=== PATIENT | male | born 1980 | race Caucasian/White ===

== ENCOUNTER → 2018-09-17 | Outpatient (CLI) | payer OTHER | LOC: M SLEEP HO 10:45 | DX: G47.30 Sleep apnea, unspecified (principal) | CPT/HCPCS: G0399 ==

== ENCOUNTER → 2018-09-18 | Outpatient (CLI) | payer OTHER ==
[2018-09-18 18:02] LABS: BASO # 0.1 10^3/uL (0.0-0.2); BASO % 0.9 % (0.0-1.0); EOS # 0.1 10^3/uL (0.0-0.50); EOS % 1.4 % (0.0-3.0); HEMATOCRIT 50.8 % (42.0-52.0); HEMOGLOBIN 16.6 g/dl (13.5-17.5); IMMATURE GRANULOCYTE % 0.6 % (0-3.0); LYMPH # 2.4 10^3/uL (1.5-4.5); LYMPH % 25.3 % (24.0-44.0); MEAN CORPUSCULAR HEMOGLOBIN 28.6 pg (27.0-33.0); MEAN CORPUSCULAR HGB CONC 32.7 g/dl (32.0-36.5); MEAN CORPUSCULAR VOLUME 87.6 fl (80.0-96.0); MONO # 0.7 10^3/uL (0.0-0.8); NEUTROPHILS # 6.1 10^3/uL (1.8-7.7); NEUTROPHILS % 64.8 % (36.0-66.0); PLATELET COUNT, AUTOMATED 306 10^3/uL (150-450); RED CELL DISTRIBUTION WIDTH 13.2 % (11.5-14.5); WHITE BLOOD COUNT 9.3 10^3/uL (4.0-10.0)
[2018-09-18 18:22] LABS: ESTIMATED AVERAGE GLUCOSE 111 MG/DL (60-110); HEMOGLOBIN A1c 5.5 %
[2018-09-18 18:23] LABS: ALBUMIN 3.7 GM/DL (3.2-5.2); ALBUMIN/GLOBULIN RATIO 1.06 (1.00-1.93); ALKALINE PHOSPHATASE 67 U/L (45-117); ALT/SGPT 19 U/L (12-78); ANION GAP 9 MEQ/L (8-16); AST/SGOT 23 U/L (7-37); BILIRUBIN,TOTAL 0.7 MG/DL (0.2-1.0); BLOOD UREA NITROGEN 21 MG/DL (7-18); CARBON DIOXIDE LEVEL 27 MEQ/L (21-32); CHLORIDE LEVEL 101 MEQ/L (98-107); CHOLESTEROL LEVEL 175 MG/DL (<200); CREATININE FOR GFR 1.21 MG/DL (0.70-1.30); FREE T4 0.99 NG/DL (0.76-1.46); GLOMERULAR FILTRATION RATE > 60.0 (>60); GLUCOSE, FASTING 76 MG/DL (70-100); HDL CHOLESTEROL 35 MG/DL (>40); LDL CHOLESTEROL 93 MG/DL (<100); NON-HDL-C 140 MG/DL; POTASSIUM SERUM 4.6 MEQ/L (3.5-5.1); SODIUM LEVEL 137 MEQ/L (136-145); TOTAL PROTEIN 7.2 GM/DL (6.4-8.2); TRIGLYCERIDES LEVEL 234 MG/DL (<150)
== END ==
LOC: M WUC 10:37
DX: I10 Essential (primary) hypertension (principal); E66.01 Morbid (severe) obesity due to excess calories
CPT/HCPCS: 84443

== ENCOUNTER → 2018-12-13 | Outpatient (CLI) | payer OTHER ==
[~2018-12-13] MED LIST: CLONI1TA PO; HYDR25TAB PO
[2018-12-13 19:46] LABS: ALBUMIN 3.8 GM/DL (3.2-5.2); BILIRUBIN,TOTAL 0.8 MG/DL (0.2-1.0); CALCIUM LEVEL 8.9 MG/DL (8.5-10.1); CREATININE FOR GFR 1.47 MG/DL (0.70-1.30); GLOMERULAR FILTRATION RATE 57.4 (>60); POTASSIUM SERUM 4.8 MEQ/L (3.5-5.1)
== END ==
LOC: M WUC 15:34
PROVIDERS: ATTEND Physician Assistant Medical
DX: I10 Essential (primary) hypertension (principal)

== ENCOUNTER 2023-06-18 12:48 | Inpatient (IN) | payer OTHER ==
[~2023-06-18] VITALS: Ht 180.3 cm; Wt 184.0 kg
[~2023-06-18 12:48] MED LIST changes: +HYDR-3490 PO; -HYDR25TAB PO
[2023-06-18] MEDS ORDERED: METOPROLOL 5 MG/5 ML VIAL IV PRN (13:15)
[2023-06-18] MEDS ORDERED: METOPROLOL TART 50 MG TAB PO ONE (13:15)
[2023-06-18 13:37] LABS: CK-MB VALUE MASS 5.1 NG/ML (<3.6)
[2023-06-18 13:38] LABS: LIPASE 33 U/L (12-53)
[2023-06-18 13:40] LABS: ALBUMIN 3.8 G/DL (3.2-5.2); ALKALINE PHOSPHATASE 94 U/L (46-116); ALT/SGPT 18 U/L (7.0-40); AST/SGOT 28 U/L (<34); BILIRUBIN,DIRECT 0.2 MG/DL (<0.4); BILIRUBIN,TOTAL 0.7 MG/DL (0.3-1.2); BLOOD UREA NITROGEN 15 MG/DL (9-23); CALCIUM LEVEL 9.7 MG/DL (8.5-10.1); CARBON DIOXIDE LEVEL 25 MMOL/L (20-31); CHLORIDE LEVEL 106 MMOL/L (98-107); CPK CREATINE PHOSPHOKINASE 348 U/L (46-171); CREATININE FOR GFR 1.05 MG/DL (0.70-1.30); GLOMERULAR FILTRATION RATE > 60.0 (>60); GLUCOSE, FASTING 127 MG/DL (60-100); MB/CK RELATIVE INDEX 1.46 (< OR =4); POTASSIUM SERUM 3.9 MMOL/L (3.5-5.1); SODIUM LEVEL 140 MMOL/L (136-145); TOTAL PROTEIN 7.4 G/DL (5.7-8.2)
[2023-06-18 13:42] LABS: THYROID STIMULATING HORMONE 2.853 uIU/ML (0.55-4.78)
[2023-06-18 13:48] LABS: PROTHROMBIN TIME 12.9 SECONDS (12.5-14.5)
[2023-06-18] MEDS ORDERED: hydrALAZINE 20MG/ML 1ML VIAL IV STA (14:05)
[2023-06-18 15:09] LABS: CK-MB VALUE MASS 5.9 NG/ML (<3.6)
[2023-06-18 15:11] LABS: MB/CK RELATIVE INDEX 1.82 (< OR =4)
[2023-06-18] MEDS ORDERED: CARVedilol 12.5 MG TAB PO ONE (15:40)
[2023-06-18 15:44] LABS: BASO # 0.1 10^3/uL (0.0-0.2); BASO % 0.9 % (0.0-1.0); EOS # 0.1 10^3/uL (0.0-0.5); EOS % 0.7 % (0.0-3.0); HEMOGLOBIN 16.2 g/dl (13.5-17.5); LYMPH # 2.4 10^3/uL (1.5-5.0); MEAN CORPUSCULAR HEMOGLOBIN 29.1 pg (27.0-33.0); MEAN CORPUSCULAR HGB CONC 33.1 g/dl (32.0-36.5); MEAN CORPUSCULAR VOLUME 88.1 fl (80.0-96.0); MONO # 0.9 10^3/uL (0.0-0.8); NEUTROPHILS # 9.4 10^3/uL (1.5-8.5); NEUTROPHILS % 72.4 % (36.0-66.0); PLATELET COUNT, AUTOMATED 291 10^3/uL (150-450); RED BLOOD COUNT 5.56 10^6/uL (4.30-6.10)
[2023-06-18] MEDS ORDERED: MED REC IN PROGRESS XX SCH (17:45)
[2023-06-18] MEDS ORDERED: MOM 30ML SUSPENSION UDC PO PRN (18:25)
[2023-06-18] MEDS ORDERED: ACETAMINOPHEN TAB 650MG DOSE (2X325MG) PO PRN (18:25)
[2023-06-18] MEDS ORDERED: HOME MED LIST COMPLETE! XX SCH (18:45)
[2023-06-18] MEDS ORDERED: NS 1,000 ML IV STA (19:31)
[2023-06-18 19:51] LABS: HEMOGLOBIN A1c 5.9 % (4.0-6.0)
[2023-06-18 19:57] LABS: CHOLESTEROL RISK RATIO 4.48 (<5); HDL CHOLESTEROL 44.1 MG/DL (>40); LDL CHOLESTEROL 115.5 MG/DL (<100); NON-HDL-C 153.9 MG/DL
[2023-06-18] MEDS: DOCUSATE SODIUM 100MG CAPSULE PO SCH (22:27)
[2023-06-18 22:40] VITALS: BP 143/74; TEMP 97; O2SAT 96
[2023-06-19 03:50] VITALS: BP 137/73; TEMP 98; O2SAT 98
[2023-06-19 05:20] LABS: HEMATOCRIT 43.8 % (42.0-52.0); HEMOGLOBIN 14.6 g/dl (13.5-17.5); MEAN CORPUSCULAR HEMOGLOBIN 29.7 pg (27.0-33.0); MEAN CORPUSCULAR HGB CONC 33.3 g/dl (32.0-36.5); MEAN CORPUSCULAR VOLUME 89.2 fl (80.0-96.0); PLATELET COUNT, AUTOMATED 248 10^3/uL (150-450); RED BLOOD COUNT 4.91 10^6/uL (4.30-6.10); WHITE BLOOD COUNT 14.1 10^3/uL (4.0-10.0)
[2023-06-19 05:44] LABS: CALCIUM LEVEL 8.8 MG/DL (8.5-10.1); CREATININE FOR GFR 1.41 MG/DL (0.70-1.30); GLOMERULAR FILTRATION RATE 58.7 (>60)
[2023-06-19] MEDS ORDERED: LR 1,000 ML IV ONE (07:10)
[2023-06-19 08:35] VITALS: BP 171/81; TEMP 97.4; O2SAT 94
[2023-06-19] MEDS: DOCUSATE SODIUM 100MG CAPSULE PO SCH ×2 (10:14→20:52)
[2023-06-19] MEDS: ASPIRIN 325 MG TAB PO SCH (10:14)
[2023-06-19] MEDS: ENOXAPARIN 40MG/0.4ML SYRINGE (J1650 PER 10MG) SC SCH (10:15)
[2023-06-19] MEDS: CARVedilol 12.5 MG TAB PO SCH ×2 (10:15→20:55)
[2023-06-19 11:31] VITALS: BP 144/74; TEMP 97.1; O2SAT 95
[2023-06-19 15:16] LABS: CALCIUM LEVEL 9.1 MG/DL (8.5-10.1); CREATININE FOR GFR 1.47 MG/DL (0.70-1.30); GLOMERULAR FILTRATION RATE 55.9 (>60)
[2023-06-19 15:42] VITALS: BP 137/80; TEMP 97.2; O2SAT 94
[2023-06-19] MEDS: LR 1,000 ML IV SCH (18:26)
[2023-06-19 20:00] VITALS: BP 198/100; TEMP 96.7; O2SAT 95
[2023-06-19 22:12] VITALS: BP 180/98
[2023-06-19] MEDS ORDERED: amLODIPine 5 MG TAB PO ONE (22:30)
[2023-06-20] VITALS: BP 210/102; TEMP 96.7; O2SAT 93
[2023-06-20 00:33] VITALS: BP 174/110
[2023-06-20] MEDS: LR 1,000 ML IV SCH (01:07)
[2023-06-20 02:26] VITALS: BP 176/106
[2023-06-20] MEDS ORDERED: amLODIPine 5 MG TAB PO ONE (02:30)
[2023-06-20 04:30] VITALS: BP 157/99; TEMP 97.3; O2SAT 97
[2023-06-20 05:14] LABS: HEMOGLOBIN 14.4 g/dl (13.5-17.5); MEAN CORPUSCULAR HEMOGLOBIN 29.6 pg (27.0-33.0); MEAN CORPUSCULAR HGB CONC 32.7 g/dl (32.0-36.5); MEAN CORPUSCULAR VOLUME 90.5 fl (80.0-96.0); PLATELET COUNT, AUTOMATED 225 10^3/uL (150-450); RED BLOOD COUNT 4.86 10^6/uL (4.30-6.10); WHITE BLOOD COUNT 11.6 10^3/uL (4.0-10.0)
[2023-06-20 05:37] LABS: BLOOD UREA NITROGEN 22 MG/DL (9-23); CALCIUM LEVEL 8.6 MG/DL (8.5-10.1); CARBON DIOXIDE LEVEL 24 MMOL/L (20-31); CHLORIDE LEVEL 108 MMOL/L (98-107); CREATININE FOR GFR 1.22 MG/DL (0.70-1.30); GLOMERULAR FILTRATION RATE > 60.0 (>60); GLUCOSE, FASTING 94 MG/DL (60-100); MAGNESIUM LEVEL 1.8 MG/DL (1.8-2.4); POTASSIUM SERUM 4.1 MMOL/L (3.5-5.1); SODIUM LEVEL 142 MMOL/L (136-145)
[2023-06-20 07:55] VITALS: BP 170/96; TEMP 97; O2SAT 96
[2023-06-20] MEDS ORDERED: CHLORTHALIDONE 25 MG TAB PO SCH (09:00)
[2023-06-20] MEDS: ASPIRIN 325 MG TAB PO SCH (09:21)
[2023-06-20] MEDS: DOCUSATE SODIUM 100MG CAPSULE PO SCH (09:21)
[2023-06-20] MEDS: ENOXAPARIN 40MG/0.4ML SYRINGE (J1650 PER 10MG) SC SCH (09:21)
[2023-06-20] MEDS: CARVedilol 12.5 MG TAB PO SCH (09:22)
[2023-06-20] MEDS ORDERED: ASPI-1 PO (11:11)
[2023-06-20] MEDS ORDERED: CHLO25TA PO (11:11)
[2023-06-20] MEDS ORDERED: CARV12.5 PO (11:11)
[2023-06-20] MEDS ORDERED: CARV25TA PO (11:12)
== END 2023-06-20 12:28 | disposition home or self-care (01) | DRG 281 ==
LOC: M ED 12:48 → M ED INP 18:25 → M PCU 22:40
PROVIDERS: ADMIT Student in an Organized Health Care Education/Training Program; ATTEND Student in an Organized Health Care Education/Training Program
PROC: B246ZZZ Ultrasonography of Right and Left Heart (ICD-10-PCS; principal; 2023-06-18)
DX: I48.0 Paroxysmal atrial fibrillation (principal); I21.A1 Myocardial infarction type 2; I16.1 Hypertensive emergency; I50.32 Chronic diastolic (congestive) heart failure; N17.9 Acute kidney failure, unspecified; Z68.43 Body mass index [BMI] 50.0-59.9, adult; E66.01 Morbid (severe) obesity due to excess calories; G47.33 Obstructive sleep apnea (adult) (pediatric); I11.0 Hypertensive heart disease with heart failure; I95.89 Other hypotension

== ENCOUNTER → 2023-07-09 | Outpatient (CLI) | payer OTHER ==
[~2023-07-09] MED LIST changes: +ASPI-1 PO; +CARV12.5 PO; +CARV25TA PO; +CHLO25TA PO
[2023-07-09 17:29] LABS: BASO # 0.1 10^3/uL (0.0-0.2); EOS # 0.2 10^3/uL (0.0-0.5); EOS % 1.5 % (0.0-3.0); HEMATOCRIT 47.5 % (42.0-52.0); HEMOGLOBIN 15.8 g/dl (13.5-17.5); LYMPH # 2.7 10^3/uL (1.5-5.0); LYMPH % 27.7 % (24.0-44.0); MEAN CORPUSCULAR HEMOGLOBIN 29.7 pg (27.0-33.0); MEAN CORPUSCULAR HGB CONC 33.3 g/dl (32.0-36.5); MEAN CORPUSCULAR VOLUME 89.3 fl (80.0-96.0); MONO # 0.8 10^3/uL (0.0-0.8); MONO % 8.4 % (2.0-8.0); NEUTROPHILS # 5.9 10^3/uL (1.5-8.5); NEUTROPHILS % 60.6 % (36.0-66.0); PLATELET COUNT, AUTOMATED 269 10^3/uL (150-450); RED BLOOD COUNT 5.32 10^6/uL (4.30-6.10); WHITE BLOOD COUNT 9.8 10^3/uL (4.0-10.0)
[2023-07-09 17:49] LABS: ALBUMIN 3.6 G/DL (3.2-5.2); ALKALINE PHOSPHATASE 77 U/L (46-116); ALT/SGPT 21 U/L (7.0-40); AST/SGOT 23 U/L (<34); BILIRUBIN,TOTAL 0.6 MG/DL (0.3-1.2); BLOOD UREA NITROGEN 23 MG/DL (9-23); CALCIUM LEVEL 9.3 MG/DL (8.5-10.1); CARBON DIOXIDE LEVEL 31 MMOL/L (20-31); CHLORIDE LEVEL 103 MMOL/L (98-107); CK-MB VALUE MASS 2.2 NG/ML (<3.6); CREATININE FOR GFR 1.27 MG/DL (0.70-1.30); GLOMERULAR FILTRATION RATE > 60.0 (>60); GLUCOSE, FASTING 73 MG/DL (60-100); POTASSIUM SERUM 4.6 MMOL/L (3.5-5.1); SODIUM LEVEL 140 MMOL/L (136-145); TOTAL PROTEIN 7.2 G/DL (5.7-8.2)
[2023-07-09 18:05] LABS: CPK CREATINE PHOSPHOKINASE 301 U/L (46-171); MB/CK RELATIVE INDEX 0.73 (< OR =4)
== END ==
LOC: M PLALAB 15:10
PROVIDERS: ATTEND Physician Assistant Medical
DX: I25.9 Chronic ischemic heart disease, unspecified (principal); I48.0 Paroxysmal atrial fibrillation; I16.0 Hypertensive urgency; N17.9 Acute kidney failure, unspecified; I50.31 Acute diastolic (congestive) heart failure

== ENCOUNTER 2024-04-28 10:15 | Emergency (ER) | payer OTHER ==
[~2024-04-28] VITALS: Ht 177.8 cm; Wt 182.5 kg
[2024-04-28 11:08] LABS: BASO # 0.1 10^3/uL (0.0-0.2); BASO % 0.4 % (0.0-1.0); EOS % 0.1 % (0.0-3.0); HEMATOCRIT 46.7 % (42.0-52.0); HEMOGLOBIN 16.2 g/dl (13.5-17.5); LYMPH # 1.8 10^3/uL (1.5-5.0); LYMPH % 11.1 % (24.0-44.0); MEAN CORPUSCULAR HGB CONC 34.7 g/dl (32.0-36.5); MEAN CORPUSCULAR VOLUME 89.5 fl (80.0-96.0); MONO # 1.3 10^3/uL (0.0-0.8); MONO % 8.3 % (2.0-8.0); NEUTROPHILS # 12.8 10^3/uL (1.5-8.5); NEUTROPHILS % 79.4 % (36.0-66.0); PLATELET COUNT, AUTOMATED 234 10^3/uL (150-450); RED BLOOD COUNT 5.22 10^6/uL (4.30-6.10); WHITE BLOOD COUNT 16.1 10^3/uL (4.0-10.0)
[2024-04-28 11:21] LABS: INR 1.08; PARTIAL THROMBOPLASTIN TIME 28.4 SECONDS (24.8-34.2); PROTHROMBIN TIME 13.7 SECONDS (12.5-14.5)
[2024-04-28 11:27] LABS: LIPASE 25 U/L (12-53)
[2024-04-28 11:29] LABS: ALBUMIN 3.8 G/DL (3.2-5.2); ALKALINE PHOSPHATASE 86 U/L (46-116); ALT/SGPT 18 U/L (7.0-40); AST/SGOT 45 U/L (<34); BILIRUBIN,DIRECT 0.6 MG/DL (<0.4); BILIRUBIN,TOTAL 2.2 MG/DL (0.3-1.2); BLOOD UREA NITROGEN 11 MG/DL (9-23); CALCIUM LEVEL 9.5 MG/DL (8.5-10.1); CARBON DIOXIDE LEVEL 26 MMOL/L (20-31); CHLORIDE LEVEL 103 MMOL/L (98-107); CK-MB VALUE MASS 2.3 NG/ML (<3.6); CPK CREATINE PHOSPHOKINASE 262 U/L (46-171); CREATININE FOR GFR 0.91 MG/DL (0.70-1.30); GLOMERULAR FILTRATION RATE > 60.0 (>60); GLUCOSE, FASTING 141 MG/DL (60-100); MB/CK RELATIVE INDEX 0.87 (< OR =4); POTASSIUM SERUM 3.7 MMOL/L (3.5-5.1); SODIUM LEVEL 136 MMOL/L (136-145); TOTAL PROTEIN 7.4 G/DL (5.7-8.2)
[2024-04-28 11:33] LABS: FREE T4 1.08 NG/DL (0.89-1.76); THYROID STIMULATING HORMONE 2.366 uIU/ML (0.55-4.78)
[2024-04-28] MEDS: LABETALOL 100MG/20ML VIAL IV STA (12:37)
[2024-04-28] MEDS ORDERED: ISOVUE-370 76% 100ML VIAL As Ordered ONE (12:41)
[2024-04-28 13:00] LABS: CK-MB VALUE MASS 2.2 NG/ML (<3.6); MB/CK RELATIVE INDEX 0.91 (< OR =4)
[2024-04-28] MEDS: CARVedilol 12.5 MG TAB PO ONE (13:13)
[2024-04-28] MEDS ORDERED: HOME MED LIST COMPLETE! XX SCH (14:45)
[2024-04-28] MEDS ORDERED: LISI20TA33 PO (17:55)
[2024-04-28] MEDS ORDERED: NORV5TAB PO (17:55)
[2024-04-28] MEDS ORDERED: [UNRECOGNIZED DRUG - CODE] PO (17:55)
[2024-04-28] MEDS ORDERED: CORE25TA PO (17:55)
[2024-04-28 18:30] VITALS: O2SAT 94
[2024-04-28 18:33] VITALS: BP 153/72
[2024-04-28] MEDS: lisinopriL 40MG TAB PO ONE (18:33)
[2024-04-28] MEDS: amLODIPine 5 MG TAB PO ONE (18:33)
[2024-04-28 18:36] VITALS: BP 138/82; TEMP 98
== END 2024-04-28 18:43 | disposition home or self-care (01) ==
LOC: M ED 10:15
DX: I16.0 Hypertensive urgency (principal); R31.9 Hematuria, unspecified; I45.81 Long QT syndrome; I48.91 Unspecified atrial fibrillation; I10 Essential (primary) hypertension; G47.33 Obstructive sleep apnea (adult) (pediatric); Z79.899 Other long term (current) drug therapy
CPT/HCPCS: 71046; 74177; 80048; 80076; 81001; 82550; 82553; 83690; 83880; 84439; 84443; 84484; 85025; 85610; 85730; 87086; 93005; 93041; 94760; 96374; 99285; J1920; Q9967

== ENCOUNTER 2025-10-01 12:45 | Emergency (ER) | payer OTHER ==
[~2025-10-01] VITALS: Ht 175.3 cm; Wt 192.2 kg
[~2025-10-01 12:45] MED LIST changes: +CORE25TA PO; +LISI20TA33 PO; +NORV5TAB PO; +[UNRECOGNIZED DRUG - CODE] PO
[2025-10-01 12:55] VITALS: TEMP 98.2
[2025-10-01 13:08] LABS: BASO # 0.1 10^3/uL (0.0-0.2); BASO % 0.9 % (0.0-1.0); EOS # 0.2 10^3/uL (0.0-0.5); EOS % 1.5 % (0.0-3.0); LYMPH # 2.2 10^3/uL (1.5-5.0); LYMPH % 20.6 % (24.0-44.0); MONO # 0.7 10^3/uL (0.0-0.8); MONO % 6.2 % (2.0-8.0); NEUTROPHILS # 7.4 10^3/uL (1.5-8.5); NEUTROPHILS % 69.9 % (36.0-66.0); PLATELET COUNT, AUTOMATED 239 10^3/uL (150-450)
[2025-10-01] MEDS: METOPROLOL 5 MG/5 ML VIAL IV SCH ×2 (13:17→14:26)
[2025-10-01] MEDS: METOPROLOL TART 50 MG TAB PO ONE ×2 (13:23→14:27)
[2025-10-01 13:33] LABS: CK-MB VALUE MASS 5.1 NG/ML (<3.6)
[2025-10-01 13:35] LABS: CALCIUM LEVEL 8.4 MG/DL (8.5-10.1); CARBON DIOXIDE LEVEL 25.0 MMOL/L (20-31); CHLORIDE LEVEL 106.0 MMOL/L (98-107); CPK CREATINE PHOSPHOKINASE 249.0 U/L (46-171); CREATININE FOR GFR 1.34 MG/DL (0.70-1.30); GLOMERULAR FILTRATION RATE 67.0 (>60); MAGNESIUM LEVEL 1.8 MG/DL (1.8-2.4); MB/CK RELATIVE INDEX 2.04 (< OR =4); POTASSIUM SERUM 3.9 MMOL/L (3.5-5.1); SODIUM LEVEL 143.0 MMOL/L (136-145)
[2025-10-01] MEDS ORDERED: ISOVUE-370 76% 100 ML VIAL As Ordered ONE (15:09)
[2025-10-01 15:46] LABS: ESTIMATED AVERAGE GLUCOSE 120.0 MG/DL (60-110)
[2025-10-01 15:59] VITALS: BP 140/118
[2025-10-01] MEDS: dilTIAZem 25 MG/5 ML VIAL IV ONE (15:59)
[2025-10-01 19:30] VITALS: O2SAT 95
[2025-10-01 19:33] VITALS: BP 141/96
== END 2025-10-01 19:35 | disposition short-term general hospital (02) ==
LOC: M ED 12:45 → EDBD 12:45 → M ED 19:35
DX: I24.89 Other forms of acute ischemic heart disease (principal); I48.92 Unspecified atrial flutter; K76.0 Fatty (change of) liver, not elsewhere classified; I50.22 Chronic systolic (congestive) heart failure; I11.0 Hypertensive heart disease with heart failure; I48.91 Unspecified atrial fibrillation; G47.33 Obstructive sleep apnea (adult) (pediatric); Z79.899 Other long term (current) drug therapy
CPT/HCPCS: 71045; 71275; 80048; 82550; 82553; 83036; 83735; 84443; 84484; 85025; 93005; 93041; 94760; 96374; 96375; 96376; 99285; J0616; J1163; Q9967

== ENCOUNTER 2025-10-27 13:00 | Emergency (ER) | payer OTHER ==
[~2025-10-27] VITALS: Ht 177.8 cm; Wt 188.2 kg
[~2025-10-27 13:00] MED LIST changes: -ACET1TAB55 PO; -AMIO400T2 PO; -ASPI-226 PO; -ATOR80TA59 PO; -ELIQ5TAB PO; -FURO40TA2 PO; -LOSA25TA13 PO; -METH-1165 PO; -METO50TA7 PO; -POTA-150 PO; -VENTAER INH
[2025-10-27] MEDS ORDERED: AMIO400T2 PO (13:36)
[2025-10-27] MEDS ORDERED: ASPI-226 PO (13:36)
[2025-10-27] MEDS ORDERED: FURO40TA2 PO (13:36)
[2025-10-27] MEDS ORDERED: POTA-150 PO (13:36)
[2025-10-27] MEDS ORDERED: METH-1165 PO (13:36)
[2025-10-27] MEDS ORDERED: ATOR80TA59 PO (13:36)
[2025-10-27] MEDS ORDERED: ACET1TAB55 PO (13:36)
[2025-10-27] MEDS ORDERED: ELIQ5TAB PO (13:36)
[2025-10-27] MEDS ORDERED: METO50TA7 PO (13:36)
[2025-10-27] MEDS ORDERED: LOSA25TA13 PO (13:36)
[2025-10-27 13:44] LABS: BASO # 0.1 10^3/uL (0.0-0.2); BASO % 1.0 % (0.0-1.0); EOS # 0.2 10^3/uL (0.0-0.5); EOS % 1.8 % (0.0-3.0); LYMPH # 1.7 10^3/uL (1.5-5.0); LYMPH % 15.5 % (24.0-44.0); MONO # 0.7 10^3/uL (0.0-0.8); MONO % 6.6 % (2.0-8.0); NEUTROPHILS # 8.1 10^3/uL (1.5-8.5); NEUTROPHILS % 74.2 % (36.0-66.0); PLATELET COUNT, AUTOMATED 396 10^3/uL (150-450)
[2025-10-27 13:55] LABS: CK-MB VALUE MASS 3.7 NG/ML (<3.6)
[2025-10-27 13:56] LABS: CALCIUM LEVEL 8.5 MG/DL (8.5-10.1); CARBON DIOXIDE LEVEL 26.0 MMOL/L (20-31); CHLORIDE LEVEL 104.0 MMOL/L (98-107); CPK CREATINE PHOSPHOKINASE 92.0 U/L (46-171); CREATININE FOR GFR 1.4 MG/DL (0.70-1.30); GLOMERULAR FILTRATION RATE 63.6 (>60); MAGNESIUM LEVEL 1.5 MG/DL (1.8-2.4); MB/CK RELATIVE INDEX 4.02 (< OR =4); POTASSIUM SERUM 4.2 MMOL/L (3.5-5.1); SODIUM LEVEL 140.0 MMOL/L (136-145)
[2025-10-27 13:58] LABS: FREE T4 1.4 NG/DL (0.89-1.76)
[2025-10-27] MEDS: MAG SULF 1GM/100ML (MAG RUN) 1 GM in IV 1 EA IV ONE (14:34)
[2025-10-27 14:58] LABS: CK-MB VALUE MASS 3.8 NG/ML (<3.6)
[2025-10-27 15:04] LABS: CPK CREATINE PHOSPHOKINASE 96.0 U/L (46-171); MB/CK RELATIVE INDEX 3.95 (< OR =4)
[2025-10-27] MEDS ORDERED: VENTAER INH (15:48)
[2025-10-27] MEDS ORDERED: HOME MED LIST COMPLETE! XX SCH (15:50)
[2025-10-27 18:38] VITALS: BP 189/85
[2025-10-27] MEDS: METOPROLOL TART 25 MG TABLET PO ONE (18:38)
[2025-10-27] MEDS: AMIODARONE 200 MG TAB PO ONE (18:39)
[2025-10-27 19:16] VITALS: BP 162/82; TEMP 98.1; O2SAT 98
== END 2025-10-27 19:33 | disposition home or self-care (01) ==
LOC: M ED 13:00
DX: I48.91 Unspecified atrial fibrillation (principal); I44.0 Atrioventricular block, first degree; I45.81 Long QT syndrome; I50.22 Chronic systolic (congestive) heart failure; I11.0 Hypertensive heart disease with heart failure; G47.33 Obstructive sleep apnea (adult) (pediatric); Z79.1 Long term (current) use of non-steroidal anti-inflammatories (NSAID); Z79.51 Long term (current) use of inhaled steroids; Z79.01 Long term (current) use of anticoagulants; Z79.899 Other long term (current) drug therapy
CPT/HCPCS: 71045; 80048; 82550; 82553; 83735; 84439; 84443; 84484; 85025; 93005; 93041; 94760; 96365; 96366; 99285; J3475

== ENCOUNTER → 2025-10-27 | Outpatient (CLI) | payer OTHER ==
[~2025-10-27] MED LIST changes: +ACET1TAB55 PO; +AMIO400T2 PO; +ASPI-226 PO; +ATOR80TA59 PO; +ELIQ5TAB PO; +FURO40TA2 PO; +LOSA25TA13 PO; +METH-1165 PO; +METO50TA7 PO; +POTA-150 PO; +VENTAER INH
== END ==
LOC: M IRPRO 12:07
PROVIDERS: ATTEND Thoracic Surgery (Cardiothoracic Vascular Surgery)
DX: J90 Pleural effusion, not elsewhere classified (principal)